=== PATIENT | male | born 1950 | race Caucasian/White ===

== ENCOUNTER → 2018-10-24 | Outpatient (CLI) | payer MEDICARE, OTHER ==
[~2018-10-24] VITALS: Ht 180.3 cm; Wt 93.4 kg
[~2018-10-24] MED LIST: AMLODIPINE BESY10 MG PO; ANASPAZ0.125 MG SL; BACITRACIN3.5 GM OP; CADUET 10 MG-21 EACH PO; CATAPRES-TTS 10.1 MG TD; CIPRO250 M1 PO; CIPRO500 MG PO; CLONIDINE0.1 PO; COLACE100 MG PO; DEXAMETHASONE1.5 M1 GT; ENOXAPARIN100 MG/11 SUBQ; FLOMAX0.4 MG PO; HYDROCODONE-AP1 EAC6 PO; KEFLEX500 MG PO; MIRALAX17 GM PO; NORCO 5-325 TA1 EACH PO; OXYCODONE HCL 55 MG PO; PROTONIX40 M1 PO; SENOKOT-S1 TA1 PO; TOBRAMYCIN-DEXAM5 ML OP; WELCHOL 625 MG625 MG PO
[2018-10-24 12:11] LABS: HEMATOCRIT 38.5 % (42.0-52.0); HEMOGLOBIN 12.8 gm/dL (14.0-18.0); MCH 29.5 pg (26.0-34.0); MCHC 33.2 g/dL (28.0-37.0); MCV 88.7 fL (80.0-100.0); MPV 7.2 fl. (7.2-11.1); RBC 4.34 mil/uL (4.50-6.00); RDW-CV 14.1 % (10.5-14.5); WBC 5.9 thou/uL (4.0-11.0)
[2018-10-24 12:14] VITALS: BP 149/81; BP 152/86
[2018-10-24 12:20] LABS: APTT 26.2 Seconds (25.0-31.3)
== END | disposition home or self-care (01) ==
LOC: M.INT 11:08
PROVIDERS: Radiology Vascular & Interventional Radiology
DX: Z45.2 Encounter for adjustment and management of vascular access device (principal); I10 Essential (primary) hypertension; E78.00 Pure hypercholesterolemia, unspecified; Z98.890 Other specified postprocedural states; Z85.51 Personal history of malignant neoplasm of bladder; Z87.891 Personal history of nicotine dependence; Z79.899 Other long term (current) drug therapy; Z79.01 Long term (current) use of anticoagulants

== ENCOUNTER → 2020-05-06 | Outpatient (CLI) | payer MEDICARE, OTHER | LOC: M.RAD 10:40 | PROVIDERS: ATTEND Nurse Practitioner Family | DX: R06.00 Dyspnea, unspecified (principal) ==